=== PATIENT | female | born 1970 | race Caucasian/White ===

== ENCOUNTER → 2023-10-31 | Outpatient (CLI) | payer BC ==
[~2023-10-31] MED LIST: Levalbuterol Neb Soln 1.25 MG/3 ML UD IH ONE
== END ==
LOC: COL.PUL 09:31
DX: R06.02 Shortness of breath (principal)
CPT/HCPCS: A9540-JZ; A9567-JZ

== ENCOUNTER 2024-01-29 10:59 | Day surgery (SDC) | payer BC ==
[~2024-01-29] VITALS: Ht 160 cm; Wt 92.2 kg
[2024-01-29] VITALS (9 sets, daily range): BP systolic 97–120; BP diastolic 48–83; PULSE 48–59; TEMP 98
[2024-01-29] MEDS ORDERED: 1/2 NS 1,000 ML IV SCH (11:15)
[2024-01-29] MEDS ORDERED: TOPROL XL 25MG25 MG PO (12:13)
[2024-01-29] MEDS ORDERED: HCTZ12.5TAB PO (12:13)
[2024-01-29 12:14] LABS: HEMATOCRIT 41.1 % (37.0-47.0); HEMOGLOBIN 14.6 g/dl (12.5-16.0); MEAN CELL VOLUME 88 fl (80.0-100.0); MEAN CORPUSCULAR HEMOGLOBIN 31 pg (27-31); MEAN CORPUSCULAR HGB CONC 36 g/dl (33.0-37.0); PLATELET COUNT 204 K/mm3 (130-400); RED BLOOD COUNT 4.67 M/mm3 (4.10-5.30); REDCELL DISTRIBUTION WIDTH-CV 12.9 % (11.5-14.5)
[2024-01-29] MEDS ORDERED: TESSALON P100 MG/CAP PO (12:14)
[2024-01-29] MEDS ORDERED: SINGULAIR 110 MG/TAB PO (12:14)
[2024-01-29] MEDS ORDERED: ATIVAN 0.50.5 MG/TAB PO (12:14)
[2024-01-29] MEDS ORDERED: XOPENEX HF0.045 MG/A IH (12:15)
[2024-01-29] MEDS ORDERED: 00186-0372-20 IH (12:17)
[2024-01-29 12:18] LABS: INR 1.1 (0.8-3.0); PROTHROMBIN TIME 11.7 SECONDS (9.7-12.8)
[2024-01-29 12:20] LABS: PARTIAL THROMBOPLASTIN TIME 30.1 SECONDS (26.0-37.0)
[2024-01-29 12:21] LABS: CALCIUM 9.3 mg/dL (8.4-10.2); CREATININE, serum 0.92 mg/dL (0.57-1.11); POTASSIUM 3.7 mEq/L (3.5-4.5)
[2024-01-29] MEDS ORDERED: Nitroglycerin 100 MCG/ML (Cath Lab) 10 ML VIAL IA SCH (13:13)
[2024-01-29] MEDS ORDERED: Verapamil 2.5 MG/ML 2 ML VIAL IA SCH (13:14)
[2024-01-29] MEDS ORDERED: Heparin 1,000 UNITS/ML 10 ML Multi-Dose VIAL IV SCH (13:14)
--- NOTE | 2024-01-29 13:17 | NUR ---
See Merge Report for procedural sedation/notes
[2024-01-29] MEDS ORDERED: Midazolam 2 MG/2 ML VIAL IV SCH (13:36)
[2024-01-29] MEDS ORDERED: fentaNYL 50 MCG/ML 2 ML VIAL IV SCH (13:36)
[2024-01-29] MEDS ORDERED: Iohexol 350 - 100 ML VIAL INCOR ONE (13:37)
--- NOTE | 2024-01-29 14:00 | NUR ---
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 Awake, alert, reviewed activity with pt and precautions, dressing to right groin area is clean and dry, area soft. radial band on with no bleeding or swelling, takes sips of water
[2024-01-29] MEDS ORDERED: Acetaminophen 325 MG TAB PO PRN (14:30)
--- NOTE | 2024-01-29 14:30 | NUR ---
pt c/o radial site pressure and discomfort, tylenol 650mg po given, arm elevated on blankets. site to right groin remains the same, no bleeding area is soft, pt dozes and watches tv
--- NOTE | 2024-01-29 16:00 | NUR ---
band released at 2ml at a time over 15 min with no bleeding at site, bandaid applied and coban for support, pt sits up in bed then on side of bed, walked to b/r to void, no bleeding at right groin, dressing remains clean and dry, no swelling.
--- NOTE | 2024-01-29 16:15 | NUR ---
pt states has no further pain at wrist. Reviewed discharge inst. with pt on care of both sites, activity level and precautions to take. no changes in medication, has next appt. scheduled. iv d'cd intact, pt discharged via w/c to car with ambreen at 1640
== END 2024-01-29 16:40 | disposition home or self-care (01) ==
LOC: COL.CAR 10:59
PROVIDERS: Internal Medicine Cardiovascular Disease
DX: R06.02 Shortness of breath (principal)
CPT/HCPCS: C1894; J1644; J2250; J3010; Q9967